=== PATIENT | female | born 1930 | race Caucasian/White ===

== ENCOUNTER 2016-12-14 14:03 | Inpatient (IN) | payer MEDICARE, OTHER ==
[~2016-12-14 14:03] MED LIST: ASPIRIN81 M1 PO; COUMADIN5 M2 PO; DILANTIN100 M1 PO; HYZAAR 50-12.51 EACH PO; LASIX40 M1 PO; METOPROLOL TART25 M1 PO; NORCO 5-325 TA1 EACH PO; POTASSIUM CHLO10 ME1 PO; SENOKOT-S TABL1 EACH PO; TRAMADOL HCL50 M2 PO; TYLENOL325 M2 PO; VENTOLIN HFA18 G2 INH; VYTORIN 10-801 EACH PO
[2016-12-14] MEDS ORDERED: ZOCOR40 M1 PO (14:22)
[2016-12-14] MEDS ORDERED: COZAAR50 M1 PO (14:23)
[2016-12-14] MEDS ORDERED: LOSARTAN-HCTZ1 EAC6 PO (14:23)
[2016-12-14] MEDS ORDERED: IRON325 M3 PO (14:24)
[2016-12-14] MEDS ORDERED: METOPROLOL TART25 M1 PO (14:25)
[2016-12-15 06:24] LABS: BASO % 0.1 % (0-2); HCT-HEMATOCRIT 32.5 % (34.0-49.0); HGB-HEMOGLOBIN 11.1 gm/dl (12.0-15.5); IMMATURE GRANULOCYTES ABSOLUTE 0.04 tho/cmm (0-0.03); IMMATURE GRANULOCYTES PERCENT 0.5 % (0-0.3); LYMPH % 14.8 % (20-45); LYMPH ABSOLUTE COUNT 1.1 tho/cmm (0.8-4.5); MCH (MEAN CORPUSCULAR HGB) 29.7 pg (28.0-32.0); MCHC MEAN CORPUSCULAR HGB CONC 34.2 % (32.0-36.0); MCV (MEAN CELL VOLUME) 86.9 fl (82.0-96.0); MEAN PLATELET VOLUME 8.8 cmc (9.4-12.4); MONO % 7.7 % (0-12); MONOCYTE ABSOLUTE COUNT 0.6 tho/cmm (0.0-1.2); NEUTROPHIL ABSOLUTE COUNT 5.9 tho/cmm (1.6-8.0); NEUTROPHIL-AUTOMATED 5.9 tho/cmm (1.6-8.0); NEUTROPHILS % 76.9 % (40-80); PLATELET COUNT 229 tho/cmm (150-450); RED BLOOD COUNT 3.74 mil/cmm (4.00-5.20); RED CELL DISTRIBUTION WIDTH 13.9 % (12.4-16.4); WHITE BLOOD COUNT 7.7 tho/cmm (4.0-10.0)
[2016-12-15 06:25] LABS: INR 1.3 INR (0.9-1.1); PROTHROMBIN TIME 14.7 SECONDS (9.0-13.6)
[2016-12-15 06:35] LABS: ANION GAP 13 mmol/L (0-20); BLOOD UREA NITROGEN 13 mg/dl (6-24); CALCIUM 9.2 mg/dl (8.5-10.5); CARBON DIOXIDE-VENOUS 24 mmol/L (22-32); CHLORIDE 101 mmol/l (96-110); CREATININE 0.53 mg/dl (0.50-1.10); GLUCOSE 108 mg/dL (70-110); POTASSIUM 4.3 mmol/L (3.7-5.1); SODIUM 134 mmol/L (135-145); eGFR VALUE FOR BLACK >90 mL/Min
[2016-12-15] MEDS ORDERED: OMEPRAZOLE40 M2 PO (14:13)
[2016-12-15] MEDS ORDERED: LOSARTAN-HCTZ1 EAC6 PO (14:39)
[2016-12-15] MEDS ORDERED: KEFLEX500 M4 PO (14:40)
[2016-12-17 05:50] LABS: BASO % 0.2 % (0-2); HCT-HEMATOCRIT 33.9 % (34.0-49.0); HGB-HEMOGLOBIN 11.5 gm/dl (12.0-15.5); IMMATURE GRANULOCYTES ABSOLUTE 0.05 tho/cmm (0-0.03); IMMATURE GRANULOCYTES PERCENT 0.8 % (0-0.3); LYMPH % 21.7 % (20-45); LYMPH ABSOLUTE COUNT 1.3 tho/cmm (0.8-4.5); MCH (MEAN CORPUSCULAR HGB) 29.6 pg (28.0-32.0); MCHC MEAN CORPUSCULAR HGB CONC 33.9 % (32.0-36.0); MCV (MEAN CELL VOLUME) 87.1 fl (82.0-96.0); MONO % 7.9 % (0-12); MONOCYTE ABSOLUTE COUNT 0.5 tho/cmm (0.0-1.2); NEUTROPHIL ABSOLUTE COUNT 4.2 tho/cmm (1.6-8.0); NEUTROPHIL-AUTOMATED 4.2 tho/cmm (1.6-8.0); NEUTROPHILS % 69.4 % (40-80); PLATELET COUNT 254 tho/cmm (150-450); RED BLOOD COUNT 3.89 mil/cmm (4.00-5.20); RED CELL DISTRIBUTION WIDTH 13.7 % (12.4-16.4)
[2016-12-17 05:57] LABS: ANION GAP 12 mmol/L (0-20); BLOOD UREA NITROGEN 14 mg/dl (6-24); CALCIUM 9.1 mg/dl (8.5-10.5); CARBON DIOXIDE-VENOUS 24 mmol/L (22-32); CHLORIDE 101 mmol/l (96-110); CREATININE 0.54 mg/dl (0.50-1.10); GLUCOSE 108 mg/dL (70-110); POTASSIUM 4.1 mmol/L (3.7-5.1); SODIUM 133 mmol/L (135-145); eGFR VALUE FOR BLACK >90 mL/Min
[2016-12-17] MEDS ORDERED: CYCLOBENZAPRINE5 M1 PO (11:19)
[2016-12-17] MEDS ORDERED: TYLENOL325 M2 PO (11:21)
[2016-12-17] MEDS ORDERED: SENOKOT-S TABL1 EACH PO (11:22)
[2016-12-17] MEDS ORDERED: LEVAQUIN750 M1 PO (11:23)
[2017-02-08] MEDS ORDERED: LEVOFLOXACIN500 M1 PO (12:23)
[2017-02-08] MEDS ORDERED: GARLIC OIL1000 M1 PO (12:23)
[2017-03-22] MEDS ORDERED: LEVAQUIN500 M1 PO (15:52)
[2017-03-22] MEDS ORDERED: ULTRAM50 M1 PO (15:53)
== END 2016-12-17 14:25 | DRG 504 ==
LOC: 5EB 14:03 → ORE 12-15 12:23 → 5EB 12-15 13:30
PROVIDERS: Internal Medicine; ADMIT Orthopaedic Surgery Orthopaedic Surgery of the Spine
PROC: 0Y6U0Z0 Detachment at Left 3rd Toe, Complete, Open Approach (ICD-10-PCS; principal; 2016-12-15)
DX: M86.9 Osteomyelitis, unspecified (principal); L03.116 Cellulitis of left lower limb; G40.909 Epilepsy, unspecified, not intractable, without status epilepticus; L03.032 Cellulitis of left toe; I10 Essential (primary) hypertension; D50.9 Iron deficiency anemia, unspecified; E78.5 Hyperlipidemia, unspecified; M19.90 Unspecified osteoarthritis, unspecified site; G47.33 Obstructive sleep apnea (adult) (pediatric); Z95.3 Presence of xenogenic heart valve; Z96.653 Presence of artificial knee joint, bilateral; Z96.643 Presence of artificial hip joint, bilateral; Z96.612 Presence of left artificial shoulder joint; Z96.611 Presence of right artificial shoulder joint; Z88.0 Allergy status to penicillin; Z79.899 Other long term (current) drug therapy
CPT/HCPCS: J1956; J2250; J3370; J7050